=== PATIENT | female | born 1985 | race Caucasian/White ===

== ENCOUNTER 2022-03-28 19:56 | Emergency (ER) | payer SELFPAY ==
[~2022-03-28] VITALS: Ht 170.2 cm; Wt 68.0 kg
--- NOTE | 2022-03-28 20:02 | NUR ---
Patient to ER bed to gown for evaluation. Side rails up. Report given to H1.
[2022-03-28 20:03] VITALS: BP_SYST 154
--- NOTE | 2022-03-28 20:14 | NUR ---
COVID SAMPLE COLLECTED AND SENT TO LAB
--- NOTE | 2022-03-28 20:47 | NUR ---
MADE PD AWARE COVID RESULTS STILL PENDING
--- NOTE | 2022-03-28 21:12 | NUR ---
Patient dishcharged to law inforcement. patient medically cleared by [facility].
== END 2022-03-28 21:12 ==
LOC: SED 19:56
DX: Z02.89 Encounter for other administrative examinations (principal); Z20.822 Contact with and (suspected) exposure to COVID-19
CPT/HCPCS: 36415; 99283